=== PATIENT | female | born 2000 | race Caucasian/White ===

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

== ENCOUNTER 2022-08-17 13:28 | Inpatient (IN) ==
--- NOTE | 2022-08-17 14:18 | DR.GENAD ---
HPI Time Seen Time Seen by Provider: 08/17/22 14:16 PCP Primary Care Physician: alejandro Complaint/Symptoms Chief Complaint:: states that she has had a fever x2 days as high as 102 and has lower back pain mostly on the left side and burning with urination Self Treatment fo Chief Complaint: warm baths,tylenol and IBU, went to walk in clinic yesterday and was given rocephin and nausea med but it hasnt helped COVID-19 Coronavirus risk:travel/contact w/high risk person: No Has patient experienced Coronavirus symptoms: No Nurses notes reviewed Nurses Notes Review: Yes Source History Provided: Patient Mode of Arrival Mode of Arrival: Ambulatory Timing Onset of Chief Complaint: 08/16/22 Came on: Gradually Duration Duration: Intermittent Severity Severity: Moderate PMH PMH Past Medical History: No Past Medical History: Asthma Past Surgical History: Yes Surgical History: Past Surgical History Comment: c section x2, oral surgery as an Family History History of Family Medical Conditions: Yes Family Medical History: Cancer, Sudden Cardiac and Hypertension Social History Alcohol Use: None Do you use any recreational Drugs:: No Lives With: Family Lives Where: Home Infectious screening Have you traveled outside the country in the last 6 months?: No Isolation: Standard ROS Review of Systems Constitutional: See HPI and Fever Eyes: No Symptoms Reported ENTM: No Symptoms Reported Respiratoy: No Symptoms Reported Cardiovascular: No Symptoms Reported Gastrointestinal/Abdominal: No Symptoms Reported Genitourinary: See HPI and Dysuria Neurological: No Symptoms Reported Musculoskeletal: No Symptoms Reported Integumentary: No Symptoms Reported Hematologic/Lymphatic: No Symptoms Reported Endocrine: No Symptoms Reported Psychiatric: No Symptoms Reported All Other Systems: Reviewed and Negative PE Vital Signs Vitals: Temperature 98.3 F Pulse Rate [Left Brachial] 94 Pulse Rate 112 Respiratory Rate 17 Blood Pressure [Left Arm] 135/69 Blood Pressure 136/71 O2 Sat by Pulse Oximetry 99 General Limitations: No Limitations General Appearance: Alert and In No Apparent Distress Head Head Exam: Normal Inspection Eyes Eye exam: Normal Appearance ENT ENT Exam: Normal Exam External Ear Exam: Normal External Inspection Neck Neck Exam: Normal Inspection Chest Chest Inspection: Normal Inspection Respiratory Respiratory Exam: Normal Lung Sounds Bilat Cardiovascular Cardiovascular Exam: Regular Rate Abdominal Exam Abdominal Exam: Normal Inspection Extremities Extremities Exam: Normal Inspection Back Back Exam: Normal Inspection Neurologic Neurological Exam: Alert, Oriented X3, CN II-XII Intact, Normal Gait and Reflexes Normal Psychiatric Psychiatric Exam: Normal Affect and Normal Mood Skin Skin Exam: Warm and Dry ROR Labs Reviewed Laboratory Results Reviewed?: Yes Result Diagrams: 08/17/22 15:20 08/17/22 15:20 Laboratory: WBC 10.3 X10^3/uL (3.6-10.0) H 08/17/22 15:20 RBC 4.39 X10^6/uL (3.5-5.4) 08/17/22 15:20 Hgb 12.4 g/dL (12.0-16.0) 08/17/22 15:20 Hct 35.8 % (36.0-47.0) L 08/17/22 15:20 MCV 81.5 fL (80.0-100.0) 08/17/22 15:20 MCH 28.2 pg (27.0-34.0) 08/17/22 15:20 MCHC 34.6 g/dL (33.0-35.0) 08/17/22 15:20 RDW 13.4 % (11.6-16.5) 08/17/22 15:20 Plt Count 203 X10^3/uL (150.0-450.0) 08/17/22 15:20 MPV 7.7 fL (7.4-11.0) 08/17/22 15:20 Neut % (Auto) 81.6 % (42.0-75.0) H 08/17/22 15:20 Lymph % (Auto) 9.6 % (21.0-51.0) L 08/17/22 15:20 [place] % (Auto) 7.8 % (0.0-13.0) 08/17/22 15:20 Eos % (Auto) 0.7 % (0.9-2.9) L 08/17/22 15:20 Baso % (Auto) 0.3 % (0.2-1.0) 08/17/22 15:20 Neut # (Auto) 8.4 x10^3/uL (2.2-4.8) H 08/17/22 15:20 Lymph # (Auto) 1.0 X10^3/uL (1.3-2.9) L 08/17/22 15:20 [place] # (Auto) 0.8 x10^3/uL (0.3-0.8) 08/17/22 15:20 Eos # (Auto) 0.1 x10^3/uL (0.0-0.2) 08/17/22 15:20 Baso # (Auto) 0.0 X10^3/uL (0.0-0.1) 08/17/22 15:20 Absolute Nucleated RBC 0.0 /100WBC 08/17/22 15:20 Sodium 134 mmol/L (136-145) L 08/17/22 15:20 Corrected Sodium TNP 08/17/22 15:20 Potassium 3.4 mmol/L (3.5-5.1) L 08/17/22 15:20 Chloride 100 mmol/L (98-107) 08/17/22 15:20 Carbon Dioxide 27.9 mmol/L (21-32) 08/17/22 15:20 BUN 15 mg/dL (7-18) 08/17/22 15:20 Creatinine 1.18 mg/dL (0.55-1.02) H 08/17/22 15:20 Est GFR (MDRD) Af Amer > 60 (>60) 08/17/22 15:20 Est GFR (MDRD) Non-Af > 60 (>60) 08/17/22 15:20 Glucose 97 mg/dL (65-99) 08/17/22 15:20 Calcium 8.4 mg/dL (8.5-10.1) L 08/17/22 15:20 Corrected Calcium TNP 08/17/22 15:20 Total Bilirubin 0.80 mg/dL (0.2-1.0) 08/17/22 15:20 AST 13 Units/L (15-37) L 08/17/22 15:20 ALT 22 Units/L (12-78) 08/17/22 15:20 Alkaline Phosphatase 85 Units/L (46-116) 08/17/22 15:20 Total Protein 6.8 g/dL (6.4-8.2) 08/17/22 15:20 Albumin 3.5 g/dL (3.4-5.0) 08/17/22 15:20 Globulin 3.3 g/dL (2.5-4.5) 08/17/22 15:20 Albumin/Globulin Ratio 1.1 Ratio (1.1-2.1) 08/17/22 15:20 Specimen Type Clean catch urine 08/17/22 14:08 Urine Color Dark yellow (YELLOW) 08/17/22 14:08 Urine Appearance Hazy (CLEAR) 08/17/22 14:08 Urine pH 5.0 (5.0 - 8.0) 08/17/22 14:08 Ur Specific [place] 1.025 (1.000-1.030) 08/17/22 14:08 Urine Protein 3+ (NEGATIVE) 08/17/22 14:08 Urine Glucose (UA) Negative (NEGATIVE) 08/17/22 14:08 Urine Ketones 1+ (NEGATIVE) 08/17/22 14:08 Urine Blood 3+ (NEGATIVE) 08/17/22 14:08 Urine Nitrite Negative (NEGATIVE) 08/17/22 14:08 Urine Bilirubin Negative (NEGATIVE) 08/17/22 14:08 Urine Urobilinogen 1+ (NORMAL) 08/17/22 14:08 Ur Leukocyte Esterase 2+ (NEGATIVE) 08/17/22 14:08 Urine RBC 0-2 /HPF (0-3) 08/17/22 14:08 Urine WBC 10-20 /HPF (0-5) A 08/17/22 14:08 Ur Squamous Epith Cells Moderate /HPF (NEGATIVE) 08/17/22 14:08 Urine Bacteria Trace /HPF (NEGATIVE) 08/17/22 14:08 Hyaline Casts Few /LPF (NEGATIVE) 08/17/22 14:08 Granular Casts Rare /LPF (NEGATIVE) 08/17/22 14:08 Urine Mucus Many /HPF (NEGATIVE) 08/17/22 14:08 Ur Culture Indicated? No/not indicated 08/17/22 14:08 XRAY XRAY Interpreted by: Radiologist Opioid Opioid Risk Tool Age (Jeanmarie box if 16-45): Yes History of Preadolescent Sexual Abuse: No Total: 1 Total Score Risk Category: Low Risk Copyright: Toñito TAYLOR predicting aberrant behaviors Discharge Plan Diagnosis Discharge Problem: Pyelonephritis Discharge Plan Patient Disposition: 01 HOME, SELF-CARE Condition: Stable Prescriptions: No Action ondansetron 4 mg tablet,disintegrating 4 mg PO Q8H PRN cefdinir 300 mg capsule 300 mg PO BID Rx Instructions: X 10 DAYS - STARTED ON 08/16/22 Health Concerns: Post Hospitalization: new medications and changes needed to prevent readmission or further decline. Pt educated and given instructions on all concerns. Plan of Treatment: Continue with present treatment and follow up plan. Pt is to keep follow up appointment as instructed and take medications as ordered. Orders to Discharge Patient Discharge Orders: Discharge (Routine); Ordered 08/17/22 Ordered By: Spenser Pena Transfer (Routine); Ordered 08/17/22 Ordered By: Spenser Pena Follow ups/Referrals Follow ups/Referrals: MARIA ELENA ROCHE [Primary Care Provider] - 3 days
[2022-08-17 14:31] LABS: BILIRUBIN,URINE NEGATIVE (NEGATIVE); BLOOD/HEMOGLOBIN,URINE 3+ (NEGATIVE); GLUCOSE, URINE NEGATIVE (NEGATIVE); KETONES,URINE 1+ (NEGATIVE); LEUKOCYTE ESTERASE ,URINE 2+ (NEGATIVE); NITRITES,URINE NEGATIVE (NEGATIVE); PROTEIN,URINE 3+ (NEGATIVE); UROBILINOGEN,URINE 1+ (NORMAL)
[2022-08-17] MEDS ORDERED: TYLENOL 500 MG TAB EXTRA STRENGTH PO ONE ×2 (14:43→14:44)
[2022-08-17 14:49] LABS: APPEARANCE,URINE HAZY (CLEAR); BACTERIA,URINE TRACE /HPF (NEGATIVE); COLOR,URINE DARK YELLOW (YELLOW); GRANULAR CASTS,URINE RARE /LPF (NEGATIVE); HYALINE CASTS, URINE FEW /LPF (NEGATIVE); RBC,URINE 0-2 /HPF (0-3); SQUAMOUS EPITHELIAL CELL,UR MODERATE /HPF (NEGATIVE)
[2022-08-17 15:28] LABS: BASOPHILS % (AUTO) 0.3 % (0.2-1.0); EOSINOPHILS # (AUTO) 0.1 x10^3/uL (0.0-0.2); EOSINOPHILS % (AUTO) 0.7 % (0.9-2.9); HEMATOCRIT 35.8 % (36.0-47.0); HEMOGLOBIN 12.4 g/dL (12.0-16.0); LYMPHOCYTES % (AUTO) 9.6 % (21.0-51.0); MEAN CORPUSCULAR HEMOGLOBIN 28.2 pg (27.0-34.0); MEAN CORPUSCULAR HGB CONC 34.6 g/dL (33.0-35.0); MEAN CORPUSCULAR VOLUME 81.5 fL (80.0-100.0); MEAN PLATELET VOLUME 7.7 fL (7.4-11.0); MONOCYTES # (AUTO) 0.8 x10^3/uL (0.3-0.8); MONOCYTES % (AUTO) 7.8 % (0.0-13.0); NEUTROPHILS # (AUTO) 8.4 x10^3/uL (2.2-4.8); NEUTROPHILS % (AUTO) 81.6 % (42.0-75.0); RED BLOOD COUNT 4.39 X10^6/uL (3.5-5.4); RED CELL DISTRIBUTION WIDTH 13.4 % (11.6-16.5); WHITE BLOOD COUNT 10.3 X10^3/uL (3.6-10.0)
[2022-08-17 15:41] LABS: ALANINE AMINOTRANSFERASE 22 Units/L (12-78); ALBUMIN 3.5 g/dL (3.4-5.0); ALKALINE PHOSPHATASE 85 Units/L (46-116); ASPARTATE AMINO TRANSFERASE 13 Units/L (15-37); BLOOD UREA NITROGEN 15 mg/dL (7-18); CALCIUM 8.4 mg/dL (8.5-10.1); CARBON DIOXIDE 27.9 mmol/L (21-32); CHLORIDE 100 mmol/L (98-107); CREATININE 1.18 mg/dL (0.55-1.02); SODIUM 134 mmol/L (136-145); TOTAL PROTEIN 6.8 g/dL (6.4-8.2); eGFR NON BLACK RACES > 60 (>60)
[2022-08-17] MEDS ORDERED: NS 100 ML IV 100 ML ONE (16:19)
--- NOTE | 2022-08-17 17:54 | CT ---
HISTORYabd pain, fever, back painSTUDYCT abdomen pelvis without IV contrastCOMPARISONNoneTECHNIQUEAxial CT was acquired from the lung bases through the pelvis with IV contrast; multiplaner reformats are generated from the original axial data.FINDINGSThe lung bases are clear. There is no pleural or pericardial effusion.The liver attenuation is mildly decreased in attenuation. There is no biliary dilatation. The gallbladder is normal in morphology with no radiopaque stones.Evidence of splenomegaly. AP diameter of the spleen is 15 cm.Normal attenuation of the pancreas with no inflammatory changesAdrenal glands are symmetric.There is asymmetric left-sided perinephric inflammatory stranding. 1 cm hypoattenuating cystic lesion is seen at the upper pole collecting system of the left kidney. Striated nephrograms of the left kidney are observed. No aggressive hydronephrosis. No obstructing stones are seen along the course of the left ureter. Bladder wall is also subjectively thickened despite suboptimal distension.No evidence of bowel obstruction. There are no aggressively thickened or acutely inflamed bowel segments.The appendix is normal.The aorta is normal in caliber. There are no enlarged intraabdominal lymph nodes.The bladder is normal in morphology. No asymmetric wall thickening.Uterus is average size and there is no pathologic adnexal asymmetry identified.No free fluid or pelvic lymphadenopathy.No aggressive bony lesions or acute osseous abnormalities.IMPRESSIONImaging findings are compatible with acute left-sided pyelonephritisCircumferential bladder wall thickening may also indicate coexisting cystitis.SplenomegalyRadiation dose reduction was achieved through individualized adjustment of kVP and/or mA, through adaptive statistical iterative reconstruction, and/or through automated tube current modulation.Electronically signed by: SHAY ROME (Aug 17, 2022 17:52:59)
[2022-08-17] MEDS ORDERED: TORADOL 30 MG VIAL IVP ONE (18:11)
[2022-08-17] MEDS ORDERED: ROCEPHIN VIAL 1 GRAM 1 G in NS 100 ML IV 100 ML IV SCH (18:12)
[2022-08-17] MEDS ORDERED: NS 1,000 ML IV 1,000 ML IV ONE (18:16)
[2022-08-17] MEDS ORDERED: NS 1,000 ML IV 1,000 ML ONE (18:16)
[2022-08-17] MEDS ORDERED: TORADOL 30 MG VIAL ONE (18:17)
[2022-08-17] MEDS ORDERED: ROCEPHIN VIAL 1 GRAM ONE (18:18)
[2022-08-17] MEDS ORDERED: ROCEPHIN VIAL 1 GRAM IV ONE (18:25)
[2022-08-17] MEDS ORDERED: NORCO 10/325 TAB PO PRN (20:14)
[2022-08-17] MEDS: D5 1/2 NS 1,000 ML 1,000 ML IV SCH (20:59)
[2022-08-17] MEDS: ZOFRAN INJ 4 MG VIAL IVP PRN (20:59)
[2022-08-17] MEDS: LEVAQUIN PREMIX IV 500 MG 500 MG/100 ML BAG IV SCH (21:00)
[2022-08-17 23:10] VITALS: BMI 37.5
[2022-08-18] MEDS: COLACE CAP 100 MG PO SCH ×2 (00:03→21:12)
[2022-08-18] MEDS ORDERED: TYLENOL 325 MG TAB PO ONE (03:52)
[2022-08-18] MEDS: ZOFRAN INJ 4 MG VIAL IVP PRN ×2 (03:59→21:16)
[2022-08-18] MEDS: TYLENOL 325 MG TAB PO PRN ×2 (04:13→09:51)
[2022-08-18] MEDS: D5 1/2 NS 1,000 ML 1,000 ML IV SCH ×4 (05:02→21:04)
[2022-08-18 06:00] LABS: BASOPHILS % (AUTO) 0.3 % (0.2-1.0); EOSINOPHILS % (AUTO) 0.5 % (0.9-2.9); HEMATOCRIT 33.4 % (36.0-47.0); HEMOGLOBIN 11.6 g/dL (12.0-16.0); LYMPHOCYTES # (AUTO) 0.5 X10^3/uL (1.3-2.9); LYMPHOCYTES % (AUTO) 8.2 % (21.0-51.0); MEAN CORPUSCULAR HEMOGLOBIN 28.2 pg (27.0-34.0); MEAN CORPUSCULAR HGB CONC 34.8 g/dL (33.0-35.0); MEAN CORPUSCULAR VOLUME 81.1 fL (80.0-100.0); MEAN PLATELET VOLUME 8.3 fL (7.4-11.0); MONOCYTES # (AUTO) 0.3 x10^3/uL (0.3-0.8); MONOCYTES % (AUTO) 6.2 % (0.0-13.0); NEUTROPHILS # (AUTO) 4.7 x10^3/uL (2.2-4.8); NEUTROPHILS % (AUTO) 84.8 % (42.0-75.0); RED BLOOD COUNT 4.12 X10^6/uL (3.5-5.4); RED CELL DISTRIBUTION WIDTH 13.4 % (11.6-16.5); WHITE BLOOD COUNT 5.6 X10^3/uL (3.6-10.0)
[2022-08-18 06:04] LABS: ALANINE AMINOTRANSFERASE 18 Units/L (12-78); ALBUMIN 2.9 g/dL (3.4-5.0); ALKALINE PHOSPHATASE 72 Units/L (46-116); ASPARTATE AMINO TRANSFERASE 14 Units/L (15-37); BLOOD UREA NITROGEN 11 mg/dL (7-18); CHLORIDE 101 mmol/L (98-107); COR CA(FOR HYPOALB) 8.9 mg/dL (8.5-10.1); COR NA(FOR HYPERGLY) 135 mmol/L (136-145); CREATININE 0.92 mg/dL (0.55-1.02); MAGNESIUM 1.6 mg/dL (2.0-2.9); SODIUM 134 mmol/L (136-145); TOTAL PROTEIN 6.3 g/dL (6.4-8.2); eGFR NON BLACK RACES > 60 (>60)
[2022-08-18] MEDS ORDERED: KLOR-CON PO PRN (06:08)
[2022-08-18] MEDS ORDERED: K-DUR TAB 20 MEQ PO PRN (06:08)
[2022-08-18] MEDS ORDERED: MICRO K EXTEN CAP 10 MEQ PO PRN (06:08)
[2022-08-18] MEDS ORDERED: POTASSIUM CHLORIDE LIQ 20 MEQ UDC PO PRN (06:08)
[2022-08-18] MEDS ORDERED: POTASSIUM CHL 60 MEQ/NS 0.45% 500 ML IV PRN (06:08)
[2022-08-18] MEDS ORDERED: POTASSIUM CHL 40 MEQ/NS 0.45% 500 ML IV PRN (06:08)
[2022-08-18] MEDS: K-RIDER 10 MEQ/NS 100 ML 10 MEQ/100 ML BAG IV PRN ×2 (07:07→09:47)
[2022-08-18] MEDS: ROCEPHIN VIAL 1 GRAM 1 G in NS 100 ML IV 100 ML IV SCH (08:21)
[2022-08-18 09:41] LABS: APPEARANCE,URINE CLEAR (CLEAR); BILIRUBIN,URINE NEGATIVE (NEGATIVE); BLOOD/HEMOGLOBIN,URINE 1+ (NEGATIVE); COLOR,URINE STRAW (YELLOW); GLUCOSE, URINE NEGATIVE (NEGATIVE); KETONES,URINE NEGATIVE (NEGATIVE); LEUKOCYTE ESTERASE ,URINE 1+ (NEGATIVE); NITRITES,URINE NEGATIVE (NEGATIVE); PH,URINE 6.5 (5.0 - 8.0); PROTEIN,URINE NEGATIVE (NEGATIVE); UROBILINOGEN,URINE NORMAL (NORMAL)
[2022-08-18 09:42] LABS: BACTERIA,URINE TRACE /HPF (NEGATIVE); GRANULAR CASTS,URINE RARE /LPF (NEGATIVE); RBC,URINE 0-2 /HPF (0-3); RENAL EPITHELIAL CELLS,URINE RARE /HPF (NEGATIVE); SQUAMOUS EPITHELIAL CELL,UR FEW /HPF (NEGATIVE)
[2022-08-18] MEDS ORDERED: PHENERGAN INJ 25 MG IM PRN (09:50)
[2022-08-18] MEDS: MAGNESIUM SULFATE 1 GRAM/100 mL PREMIX 1 G/100 ML BAG IV PRN ×2 (11:26→13:05)
--- NOTE | 2022-08-18 13:32 | DR.H&P ---
H&P - History & Physical for Day of: H&P Date: 08/17/22 - Chief Complaint Chief Complaint: fever, uti - History of Present Illness History of Present Illness: Pt states that she has had a fever x2 days as high as 102 and has lower back pain mostly on the left side and burning with urination. Pt has taken tylenol and IBU, went to walk in clinic yesterday and was given rocephin and nausea med without improvement. Pt admitted for treatment of acute illness. - Past Medical History Past Medical History: Asthma - Past Surgical History Surgical History: - Family History Family Medical History: Coronary Artery Disease, Hypertension - Social History Does patient currently use any type of tobacco product: No Have you used tobacco products in the last 12 months: No Type of Tobacco Use: None Does any household member use tobacco: No Alcohol Use: None Drug Use: None - Medications Home Medications: Penicillins Allergy (Verified 05/04/17 12:33) CONTINUE taking the following medications cefdinir 300 mg capsule 300 mg PO BID 08/17/22 [History] ondansetron 4 mg disintegrating tablet 4 mg PO Q8H PRN 08/17/22 [History] - Review of Systems Constitutional: Weakness Eyes: No Symptoms Reported ENT: No Symptoms Reported Respiratory: No Symptoms Reported Cardiovascular: No Symptoms Reported Gastrointestinal: Nausea, Vomiting Genitourinary: Dysuria, Frequency, Incontinence Musculoskeletal: Back Pain Skin: No Symptoms Reported Neurological: No Symptoms Reported - Physical Exam Vital Signs: Temperature 97.9 F Pulse Rate [Left Brachial] 82 Pulse Rate 112 Respiratory Rate 18 Blood Pressure [Right Arm] 120/69 Blood Pressure [Left Arm] 135/69 Blood Pressure 136/71 O2 Sat by Pulse Oximetry 100 Oriented: Normal Eyes: Normal Ear: Normal Nose: Normal Throat: Normal Respiratory: RLL Diminished, LLL Diminished Cardiovascular: Normal : Normal Auscultation: Bowel Sounds: Normal Palpation: Normal Tenderness: Normal Skin: Decreased [place] Musculoskeletal: Back:Lumbar Psychiatric: Anxiety Affect: Anxious Speech Pattern: Clear, Appropriate - Assessment/Plan (1) Pyelonephritis Status: Acute Plan: Admit, blood and urine cultures on admission, iv atbx therapy, iv hydration. pain and nausea control. repeat am labs - Allergies Allergies/Adverse Reactions: Allergies Allergy/AdvReac Type Severity Reaction Status Date / Time Penicillins Allergy Verified 05/04/17 12:33
--- NOTE | 2022-08-18 17:55 | PCM.PROG ---
Progress Note - Progress Note for Day of Date of Exam: 08/18/22 - Subjective Subjective: PT IS 22WF, ER ADMISSION WITH ACUATE PYELONEPHRITIS, CONFIRMED ON CT SCAN. PT IS CURRENTLY ON IV HYDRATION WITH PAIN CONTROL, IV LEVAQUIN. PT HAD BLOOD AND URINE CULTURES OBTAINED. REPEAT UA ORDERED FOR THIS AM. PT REPORTS LEFT FLANK PAIN CONTINUED WITH NAUSEA AND VOMITING X 2 EPISODE. PT DENIES ANY CHEST PAIN OR SOB. REVIEWED LABS AND DIAGNOSTIC WITH PT AND FAMILY. - Past Medical Family Social History Past Med/Fam/Surg Hx: No changes since H&P Allergies: Allergies Penicillins Allergy (Verified 05/04/17 12:33) - Review of Systems ROS: No change since H&P - Vital Signs and I&O's Vital Signs: Temperature 97.7 F Pulse Rate [Left Brachial] 90 Pulse Rate 112 Respiratory Rate 20 Blood Pressure [Right Arm] 131/77 Blood Pressure [Left Arm] 135/69 Blood Pressure 136/71 O2 Sat by Pulse Oximetry 100 Intake and Output: Intake & Output 08/16/22 08/17/22 08/18/22 08/19/22 11:59 11:59 11:59 11:59 Intake Total 2929 / 2929 2240 / 2240 Balance 2929 / 2929 2240 / 2240 - Physical Exam Oriented: Normal Eyes: Normal Ear: Normal Nose: Normal Throat: Normal Respiratory: Normal Cardiovascular: Normal : Normal Auscultation: Bowel Sounds: Normal Tenderness: LLQ, Other (LEFT FLANK TENDERNESS) Skin: Decreased [place] Musculoskeletal: Back:Lumbar Psychiatric: Anxiety Affect: Anxious Speech Pattern: Clear, Appropriate - Laboratory and Diagnostics Result Diagrams: 08/18/22 05:30 08/18/22 16:00 Labs: Laboratory WBC 5.6 X10^3/uL (3.6-10.0) 08/18/22 05:30 RBC 4.12 X10^6/uL (3.5-5.4) 08/18/22 05:30 Hgb 11.6 g/dL (12.0-16.0) L 08/18/22 05:30 Hct 33.4 % (36.0-47.0) L 08/18/22 05:30 MCV 81.1 fL (80.0-100.0) 08/18/22 05:30 MCH 28.2 pg (27.0-34.0) 08/18/22 05:30 MCHC 34.8 g/dL (33.0-35.0) 08/18/22 05:30 RDW 13.4 % (11.6-16.5) 08/18/22 05:30 Plt Count 182 X10^3/uL (150.0-450.0) 08/18/22 05:30 MPV 8.3 fL (7.4-11.0) 08/18/22 05:30 Neut % (Auto) 84.8 % (42.0-75.0) H 08/18/22 05:30 Lymph % (Auto) 8.2 % (21.0-51.0) L 08/18/22 05:30 [place] % (Auto) 6.2 % (0.0-13.0) 08/18/22 05:30 Eos % (Auto) 0.5 % (0.9-2.9) L 08/18/22 05:30 Baso % (Auto) 0.3 % (0.2-1.0) 08/18/22 05:30 Neut # (Auto) 4.7 x10^3/uL (2.2-4.8) 08/18/22 05:30 Lymph # (Auto) 0.5 X10^3/uL (1.3-2.9) L 08/18/22 05:30 [place] # (Auto) 0.3 x10^3/uL (0.3-0.8) 08/18/22 05:30 Eos # (Auto) 0.0 x10^3/uL (0.0-0.2) 08/18/22 05:30 Baso # (Auto) 0.0 X10^3/uL (0.0-0.1) 08/18/22 05:30 Absolute Nucleated RBC 0.0 /100WBC 08/18/22 05:30 Sodium 134 mmol/L (136-145) L 08/18/22 05:30 Corrected Sodium 135 mmol/L (136-145) L 08/18/22 05:30 Potassium 3.8 mmol/L (3.5-5.1) 08/18/22 16:00 Chloride 101 mmol/L (98-107) 08/18/22 05:30 Carbon Dioxide 26.0 mmol/L (21-32) 08/18/22 05:30 BUN 11 mg/dL (7-18) 08/18/22 05:30 Creatinine 0.92 mg/dL (0.55-1.02) 08/18/22 05:30 Est GFR (MDRD) Af Amer > 60 (>60) 08/18/22 05:30 Est GFR (MDRD) Non-Af > 60 (>60) 08/18/22 05:30 Glucose 139 mg/dL (65-99) H 08/18/22 05:30 Calcium 8.0 mg/dL (8.5-10.1) L 08/18/22 05:30 Corrected Calcium 8.9 mg/dL (8.5-10.1) 08/18/22 05:30 Magnesium 1.6 mg/dL (2.0-2.9) L 08/18/22 05:30 Total Bilirubin 0.50 mg/dL (0.2-1.0) 08/18/22 05:30 AST 14 Units/L (15-37) L 08/18/22 05:30 ALT 18 Units/L (12-78) 08/18/22 05:30 Alkaline Phosphatase 72 Units/L (46-116) 08/18/22 05:30 Total Protein 6.3 g/dL (6.4-8.2) L 08/18/22 05:30 Albumin 2.9 g/dL (3.4-5.0) L 08/18/22 05:30 Globulin 3.4 g/dL (2.5-4.5) 08/18/22 05:30 Albumin/Globulin Ratio 0.9 Ratio (1.1-2.1) L 08/18/22 05:30 Specimen Type Clean catch urine 08/18/22 09:19 Urine Color [place]raw (YELLOW) 08/18/22 09:19 Urine Appearance Clear (CLEAR) 08/18/22 09:19 Urine pH 6.5 (5.0 - 8.0) 08/18/22 09:19 Ur Specific [place] 1.015 (1.000-1.030) 08/18/22 09:19 Urine Protein Negative (NEGATIVE) 08/18/22 09:19 Urine Glucose (UA) Negative (NEGATIVE) 08/18/22 09:19 Urine Ketones Negative (NEGATIVE) 08/18/22 09:19 Urine Blood 1+ (NEGATIVE) 08/18/22 09:19 Urine Nitrite Negative (NEGATIVE) 08/18/22 09:19 Urine Bilirubin Negative (NEGATIVE) 08/18/22 09:19 Urine Urobilinogen Normal (NORMAL) 08/18/22 09:19 Ur Leukocyte Esterase 1+ (NEGATIVE) 08/18/22 09:19 Urine RBC 0-2 /HPF (0-3) 08/18/22 09:19 Urine WBC 3-5 /HPF (0-5) 08/18/22 09:19 Ur Squamous Epith Cells Few /HPF (NEGATIVE) 08/18/22 09:19 Ur Renal Epithelial Cell Rare /HPF (NEGATIVE) 08/18/22 09:19 Urine Bacteria Trace /HPF (NEGATIVE) 08/18/22 09:19 Hyaline Casts Few /LPF (NEGATIVE) 08/17/22 14:08 Granular Casts Rare /LPF (NEGATIVE) 08/18/22 09:19 Urine Mucus Many /HPF (NEGATIVE) 08/17/22 14:08 Ur Culture Indicated? No/not indicated 08/18/22 09:19 - Plan (1) Pyelonephritis Status: Acute Plan: blood and urine cultures on admission, iv atbx therapy, iv hydration. pain and nausea control. repeat am labs
[2022-08-18] MEDS: LEVAQUIN PREMIX IV 500 MG 500 MG/100 ML BAG IV SCH (21:12)
[2022-08-18] MEDS: NORCO 5/325 MG TAB PO PRN (21:16)
[2022-08-19] MEDS: D5 1/2 NS 1,000 ML 1,000 ML IV SCH ×5 (03:42→22:00)
[2022-08-19 06:16] LABS: BASOPHILS % (AUTO) 0.8 % (0.2-1.0); EOSINOPHILS # (AUTO) 0.1 x10^3/uL (0.0-0.2); EOSINOPHILS % (AUTO) 4.7 % (0.9-2.9); HEMATOCRIT 32.3 % (36.0-47.0); HEMOGLOBIN 11.4 g/dL (12.0-16.0); MEAN CORPUSCULAR HEMOGLOBIN 28.5 pg (27.0-34.0); MEAN CORPUSCULAR HGB CONC 35.2 g/dL (33.0-35.0); MEAN CORPUSCULAR VOLUME 81.2 fL (80.0-100.0); MEAN PLATELET VOLUME 8.3 fL (7.4-11.0); MONOCYTES # (AUTO) 0.3 x10^3/uL (0.3-0.8); MONOCYTES % (AUTO) 12.6 % (0.0-13.0); NEUTROPHILS # (AUTO) 1.1 x10^3/uL (2.2-4.8); NEUTROPHILS % (AUTO) 41.9 % (42.0-75.0); RED BLOOD COUNT 3.98 X10^6/uL (3.5-5.4); RED CELL DISTRIBUTION WIDTH 13.5 % (11.6-16.5); WHITE BLOOD COUNT 2.6 X10^3/uL (3.6-10.0)
[2022-08-19 06:27] LABS: ALANINE AMINOTRANSFERASE 19 Units/L (12-78); ALBUMIN 2.8 g/dL (3.4-5.0); ALKALINE PHOSPHATASE 67 Units/L (46-116); ASPARTATE AMINO TRANSFERASE 17 Units/L (15-37); BLOOD UREA NITROGEN 7 mg/dL (7-18); CALCIUM 7.9 mg/dL (8.5-10.1); CARBON DIOXIDE 27.4 mmol/L (21-32); CHLORIDE 105 mmol/L (98-107); COR CA(FOR HYPOALB) 8.9 mg/dL (8.5-10.1); CREATININE 0.76 mg/dL (0.55-1.02); MAGNESIUM 1.9 mg/dL (2.0-2.9); SODIUM 139 mmol/L (136-145); TOTAL PROTEIN 6.2 g/dL (6.4-8.2); eGFR NON BLACK RACES > 60 (>60)
[2022-08-19] MEDS: MAGNESIUM SULFATE 1 GRAM/100 mL PREMIX 1 G/100 ML BAG IV PRN ×2 (07:47→10:29)
[2022-08-19] MEDS: ROCEPHIN VIAL 1 GRAM 1 G in NS 100 ML IV 100 ML IV SCH (09:01)
[2022-08-19] MEDS: NORCO 5/325 MG TAB PO PRN ×2 (09:04→22:00)
[2022-08-19] MEDS ORDERED: PROVENTIL NEB TX 0.083% 2.5MG/ 3ML NEB PRN (09:49)
[2022-08-19] MEDS: COLACE CAP 100 MG PO SCH (20:25)
[2022-08-19] MEDS: LEVAQUIN PREMIX IV 500 MG 500 MG/100 ML BAG IV SCH (20:26)
[2022-08-19] MEDS: ZOFRAN INJ 4 MG VIAL IVP PRN (21:55)
[2022-08-20] MEDS: D5 1/2 NS 1,000 ML 1,000 ML IV SCH ×2 (01:02→04:59)
[2022-08-20 05:06] LABS: BASOPHILS % (AUTO) 0.8 % (0.2-1.0); EOSINOPHILS # (AUTO) 0.2 x10^3/uL (0.0-0.2); EOSINOPHILS % (AUTO) 7.2 % (0.9-2.9); HEMATOCRIT 33.4 % (36.0-47.0); HEMOGLOBIN 11.6 g/dL (12.0-16.0); LYMPHOCYTES # (AUTO) 1.3 X10^3/uL (1.3-2.9); LYMPHOCYTES % (AUTO) 44.2 % (21.0-51.0); MEAN CORPUSCULAR HGB CONC 34.6 g/dL (33.0-35.0); MEAN PLATELET VOLUME 7.8 fL (7.4-11.0); MONOCYTES # (AUTO) 0.4 x10^3/uL (0.3-0.8); MONOCYTES % (AUTO) 12.2 % (0.0-13.0); NEUTROPHILS # (AUTO) 1.1 x10^3/uL (2.2-4.8); NEUTROPHILS % (AUTO) 35.6 % (42.0-75.0); RED BLOOD COUNT 4.13 X10^6/uL (3.5-5.4); RED CELL DISTRIBUTION WIDTH 13.6 % (11.6-16.5)
[2022-08-20 05:15] LABS: ALANINE AMINOTRANSFERASE 22 Units/L (12-78); ALBUMIN 2.8 g/dL (3.4-5.0); ALKALINE PHOSPHATASE 63 Units/L (46-116); ASPARTATE AMINO TRANSFERASE 15 Units/L (15-37); BLOOD UREA NITROGEN 8 mg/dL (7-18); CALCIUM 8.1 mg/dL (8.5-10.1); CARBON DIOXIDE 28.5 mmol/L (21-32); CHLORIDE 105 mmol/L (98-107); COR CA(FOR HYPOALB) 9.1 mg/dL (8.5-10.1); SODIUM 138 mmol/L (136-145); eGFR NON BLACK RACES > 60 (>60)
--- NOTE | 2022-08-20 06:02 | RAD ---
HISTORYCOUGH & WHEEZINGSTUDYCHEST, PA/LAT ADULTCOMPARISONNoneTECHNIQUEPA or AP view of the chestFINDINGSCardiac and mediastinal contours are within normal limits. Minor left base subsegmental atelectasis. No definite pleural effusion or pneumothorax. Soft tissue attenuation limits evaluation.IMPRESSIONMinor left base subsegmental atelectasis.Electronically signed by: Drew Bardales (Aug 20, 2022 06:00:21)
[2022-08-20] MEDS ORDERED: MAGNESIUM SULFATE 1 GRAM/100 mL PREMIX 1 G/100 ML BAG IV PRN (07:07)
[2022-08-20] MEDS: ZOFRAN INJ 4 MG VIAL IVP PRN (07:18)
[2022-08-20 08:15] VITALS: BP 107/59
[2022-08-20] MEDS: ROCEPHIN VIAL 1 GRAM 1 G in NS 100 ML IV 100 ML IV SCH (09:47)
== END 2022-08-20 10:55 | disposition home or self-care (01) | DRG 690 ==
LOC: ER 13:28 → MED/SURG 18:22
PROVIDERS: ADMIT Family Medicine; ATTEND Internal Medicine
DX: N10 Acute pyelonephritis; M54.59 Other low back pain